=== PATIENT | female | born 1945 | race Caucasian/White ===

== ENCOUNTER → 2016-10-20 | Outpatient (CLI) | payer MEDICARE, MEDICAID ==
[~2016-10-20] MED LIST: ATIVAN 0.50.5 MG/TAB PO; BENADRYL25 M2 PO; CELEXA 20MG20 MG/TAB PO; IRON90 MG PO; LOPRESSOR 225 MG/TAB PO; MS CONTIN 115 MG/TAB PO; NORCO 325 MG-51 TAB PO; NORVASC 10MG10 MG PO; PERCOCET 325 MG1 TA2 PO; PHENERGAN 25 TA25 MG PO; PHENERGAN25 MG RC; ROXICODONE15 MG PO; SYNTHROID0.1 MG/TAB PO; TOPROL XL 50MG50 MG PO; VITAMIN B-12100 MCG PO
[2016-10-21 00:23] LABS: BASO # 0.1 (0.0-0.2); BASO % 1.2 % (0.0-2.0); EOS # 0.1 (0.0-0.7); EOS % 1.4 % (0-4.0); GRAN # 3.2 (1.4-6.5); GRAN % 61.6 % (42.2-75.2); HEMATOCRIT 36.1 % (37.0-47.0); HEMOGLOBIN 11.5 g/dl (12.5-16.0); LYMPH # 1.5 (1.2-3.4); LYMPH % 28.6 % (20.0-51.0); MEAN CELL VOLUME 94 fl (80.0-100.0); MEAN CORPUSCULAR HEMOGLOBIN 30 pg (27.0-31.0); MEAN CORPUSCULAR HGB CONC 32 g/dl (33.0-37.0); MEAN PLATELET VOLUME 12.1 fl (7.4-10.4); MONO # 0.4 (0.1-0.6); MONO % 6.8 % (1.7-9.3); PLATELET COUNT 175 K/mm3 (130-400); RED BLOOD COUNT 3.85 M/mm3 (4.10-5.30); REDCELL DISTRIBUTION WIDTH-CV 14.9 % (11.5-14.5); WHITE BLOOD COUNT 5.2 K/mm3 (4.8-10.8)
[2016-10-21 00:45] LABS: ADJUSTED CALCIUM 8.7 mg/dL (8.4-10.2); ALBUMIN 3.2 gm/dL (3.5-5.0); BILIRUBIN,TOTAL 0.6 mg/dL (0.0-1.0); CALCIUM 8.1 mg/dL (8.4-10.2); CREATININE, serum 1.14 mg/dL (0.52-1.25); TOTAL PROTEIN 6.1 gm/dL (6.4-8.2)
[2016-10-21 01:15] LABS: THYROID STIMULATING HORMONE 2.67 uIU/mL (0.465-4.680)
[2016-10-21 01:19] LABS: POTASSIUM 5.8 mmol/L (3.4-5.0)
== END ==
LOC: ZCOL.LAB 20:15
PROVIDERS: Internal Medicine
DX: E03.8 Other specified hypothyroidism (principal); R94.5 Abnormal results of liver function studies; R62.7 Adult failure to thrive

== ENCOUNTER → 2016-10-21 | Outpatient (CLI) | payer MEDICARE, MEDICAID | LOC: ZCOL.LAB 11:28 | DX: Z53.9 Procedure and treatment not carried out, unspecified reason (principal) ==

== ENCOUNTER → 2016-10-21 | Outpatient (CLI) | payer MEDICARE, MEDICAID ==
[2016-10-21 16:49] LABS: BASO # 0.1 (0.0-0.2); BASO % 1.3 % (0.0-2.0); EOS # 0.1 (0.0-0.7); EOS % 1.6 % (0-4.0); GRAN # 3.8 (1.4-6.5); GRAN % 62.9 % (42.2-75.2); LYMPH # 1.6 (1.2-3.4); LYMPH % 26.8 % (20.0-51.0); MEAN CELL VOLUME 96 fl (80.0-100.0); MEAN CORPUSCULAR HGB CONC 31 g/dl (33.0-37.0); MEAN PLATELET VOLUME 13.1 fl (7.4-10.4); MONO # 0.4 (0.1-0.6); MONO % 6.6 % (1.7-9.3); PLATELET COUNT 178 K/mm3 (130-400); RED BLOOD COUNT 3.73 M/mm3 (4.10-5.30); REDCELL DISTRIBUTION WIDTH-CV 15.1 % (11.5-14.5); WHITE BLOOD COUNT 6.1 K/mm3 (4.8-10.8)
[2016-10-21 16:51] LABS: HEMATOCRIT 35.7 % (37.0-47.0); HEMOGLOBIN 11.1 g/dl (12.5-16.0); MEAN CORPUSCULAR HEMOGLOBIN 30 pg (27.0-31.0)
[2016-10-21 17:09] LABS: ALBUMIN 2.9 gm/dL (3.5-5.0); BILIRUBIN,TOTAL 0.6 mg/dL (0.0-1.0); CALCIUM 8.1 mg/dL (8.4-10.2); CREATININE, serum 1.34 mg/dL (0.52-1.25); TOTAL PROTEIN 5.5 gm/dL (6.4-8.2)
[2016-10-21 17:13] LABS: POTASSIUM 5.9 mmol/L (3.4-5.0)
== END ==
LOC: ZCOL.LAB 16:34
PROVIDERS: Internal Medicine
DX: R62.7 Adult failure to thrive (principal); R94.5 Abnormal results of liver function studies

== ENCOUNTER → 2016-10-23 | Outpatient (CLI) | payer MEDICARE, MEDICAID | LOC: ZCOL.LAB 08:20 | DX: Z01.89 Encounter for other specified special examinations (principal) ==

== ENCOUNTER 2017-02-06 18:04 | Emergency (ER) | payer MEDICARE, MEDICAID ==
[~2017-02-06] VITALS: Ht 167.6 cm; Wt 63.6 kg
[2017-02-06 18:05] VITALS: TEMP 97.5
[2017-02-06 18:50] LABS: BASO # 0.1 (0.0-0.2); BASO % 1.2 % (0.0-2.0); EOS # 0.1 (0.0-0.7); EOS % 1.2 % (0-4.0); GRAN # 4.6 (1.4-6.5); GRAN % 68.7 % (42.2-75.2); HEMATOCRIT 37.4 % (37.0-47.0); HEMOGLOBIN 12.1 g/dl (12.5-16.0); LYMPH # 1.5 (1.2-3.4); MEAN CELL VOLUME 91 fl (80.0-100.0); MEAN CORPUSCULAR HEMOGLOBIN 29 pg (27.0-31.0); MEAN CORPUSCULAR HGB CONC 32 g/dl (33.0-37.0); MEAN PLATELET VOLUME 11.7 fl (7.4-10.4); MONO # 0.4 (0.1-0.6); MONO % 6.5 % (1.7-9.3); PLATELET COUNT 185 K/mm3 (130-400); RED BLOOD COUNT 4.13 M/mm3 (4.10-5.30); REDCELL DISTRIBUTION WIDTH-CV 14.7 % (11.5-14.5); WHITE BLOOD COUNT 6.8 K/mm3 (4.8-10.8)
[2017-02-06 18:58] LABS: ADJUSTED CALCIUM 8.4 mg/dL (8.4-10.2); ALBUMIN 3.8 gm/dL (3.5-5.0); BILIRUBIN,TOTAL 0.6 mg/dL (0.0-1.0); CALCIUM 8.2 mg/dL (8.4-10.2); CREATININE, serum 1.08 mg/dL (0.52-1.25); POTASSIUM 4.8 mmol/L (3.4-5.0); TOTAL PROTEIN 6.7 gm/dL (6.4-8.2)
[2017-02-06 19:58] VITALS: BP 150/82; PULSE 58
== END 2017-02-06 20:00 | disposition home or self-care (01) ==
LOC: COL.ER 18:04
PROVIDERS: Family Medicine
DX: I10 Essential (primary) hypertension (principal)